=== PATIENT | female | born 1955 | race Two or more races ===

== ENCOUNTER 2022-04-06 14:25 | Inpatient (IN) | payer OTHER ==
[~2022-04-06] VITALS: Ht 157.5 cm; Wt 93.9 kg
[2022-04-06] MEDS ORDERED: AMANTADINE (15:06)
[2022-04-06] MEDS ORDERED: COZAAR50 MG PO (15:06)
[2022-04-06] MEDS ORDERED: METFORMIN HCL500 M3 PO (15:06)
[2022-04-06] MEDS ORDERED: HYDRODIURIL12.5 MG PO (15:07)
[2022-04-06] MEDS ORDERED: AMLODIPINE-OLM1 EAC2 PO (15:07)
[2022-04-11] MEDS ORDERED: GABAPENTIN100 M2 (08:48)
[2022-04-11] MEDS ORDERED: XARELTO10 M1 (08:48)
[2022-04-11] MEDS ORDERED: CARBIDOPA-LEVO1 EA10 (08:49)
[2022-04-11] MEDS ORDERED: ATORVASTATIN CA20 MG (08:49)
[2022-04-11] MEDS ORDERED: AMANTADINE100 MG (08:49)
[2022-04-11] MEDS ORDERED: OXYCODONE-ACET1 EACH (08:49)
[2022-04-11] MEDS ORDERED: DICLOFENAC SOD100 GM (08:49)
[2022-04-11] MEDS ORDERED: PRAMIPEXOLE DIHY1 MG (08:49)
[2022-04-11] MEDS ORDERED: AMLODIPINE BESYL5 MG (08:49)
[2022-04-11] MEDS ORDERED: FAMOTIDINE40 MG (08:49)
== END 2022-04-14 09:39 | DRG 470 ==
LOC: SURG 04-11 06:00 → O/R 04-11 06:00 → SURG 04-11 07:00
PROVIDERS: ADMIT Orthopaedic Surgery; ATTEND Orthopaedic Surgery
PROC: 0SRD0J9 Replacement of Left Knee Joint with Synthetic Substitute, Cemented, Open Approach (ICD-10-PCS; principal; 2022-04-11 07:00)
DX: M17.12 Unilateral primary osteoarthritis, left knee (principal); I10 Essential (primary) hypertension; E11.9 Type 2 diabetes mellitus without complications; Z20.822 Contact with and (suspected) exposure to COVID-19

== ENCOUNTER 2022-07-21 13:01 | Outpatient (CLI) | payer OTHER ==
[~2022-07-21 13:01] MED LIST: AMANTADINE; AMANTADINE100 MG; AMLODIPINE BESYL5 MG; AMLODIPINE-OLM1 EAC2 PO; ATORVASTATIN CA20 MG; CARBIDOPA-LEVO1 EA10; COZAAR50 MG PO; DICLOFENAC SOD100 GM; FAMOTIDINE40 MG; GABAPENTIN100 M2; HYDRODIURIL12.5 MG PO; METFORMIN HCL500 M3 PO; OXYCODONE-ACET1 EACH; PRAMIPEXOLE DIHY1 MG; XARELTO10 M1
== END 2022-07-21 13:27 | disposition home or self-care (01) ==
LOC: LAB 13:01
PROVIDERS: ATTEND Orthopaedic Surgery
DX: M06.4 Inflammatory polyarthropathy (principal); D64.89 Other specified anemias

== ENCOUNTER 2022-08-25 14:43 | Outpatient (CLI) | payer OTHER | END 2022-08-25 14:50 | disposition home or self-care (01) | LOC: RAD 14:43 | PROVIDERS: ATTEND Orthopaedic Surgery | DX: S80.02XA Contusion of left knee, initial encounter (principal); M54.2 Cervicalgia ==

== ENCOUNTER 2022-09-13 08:45 | Outpatient (CLI) | payer OTHER | END 2022-09-13 08:50 | disposition home or self-care (01) | LOC: MRI 08:45 | DX: M54.2 Cervicalgia (principal); M46.92 Unspecified inflammatory spondylopathy, cervical region; M25.562 Pain in left knee | CPT/HCPCS: 72141; 73721 ==